=== PATIENT | female | born 1960 | race African-American/Black ===

== ENCOUNTER 2018-06-05 21:38 | Emergency (ER) | payer MEDICAID, OTHER ==
[~2018-06-05] VITALS: Ht 175.3 cm; Wt 136.1 kg
[2018-06-05] MEDS ORDERED: Promethazine 50mg/ml Inj IM ONE (21:45)
[2018-06-05] MEDS ORDERED: HYDROmorphone 1mg/ml Carpuject IM ONE (21:45)
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
[2018-06-05 21:52] VITALS: BP 231/60
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
[2018-06-05] MEDS ORDERED: AMITRIPTYLINE H50 MG ORAL (23:01)
[2018-06-05 23:11] VITALS: BP_SYST 135; BP_SYST 231; BP_DIAS 60; BP_DIAS 65
== END 2018-06-05 23:15 | disposition home or self-care (01) ==
LOC: EDBD 21:38 → EMR 21:48
DX: R51 Headache (principal); E66.01 Morbid (severe) obesity due to excess calories; Z68.41 Body mass index [BMI] 40.0-44.9, adult; E11.9 Type 2 diabetes mellitus without complications; J43.9 Emphysema, unspecified; Z88.8 Allergy status to other drugs, medicaments and biological substances; Z86.69 Personal history of other diseases of the nervous system and sense organs; G93.89 Other specified disorders of brain
CPT/HCPCS: 70450; 96372; 99284; J1170; J2550